=== PATIENT | female | born 1960 | race Two or more races ===

== ENCOUNTER 2018-12-15 17:18 | Emergency (ER) | payer MEDICAID ==
[~2018-12-15] VITALS: Ht 157.5 cm; Wt 68.0 kg
[2018-12-15] MEDS: ONDANSETRON HCL 4MG/2ML INJ IV STA (18:50)
[2018-12-15] MEDS: SODIUM CHLORIDE 0.9% 1,000 ML IV ONE (18:50)
[2018-12-15 18:57] LABS: BASOPHILS % 1.3 % (0.0-2.0); HEMATOCRIT. 32.8 % (36.0-48.0); LYMPHOCYTES % 46.8 % (20.0-50.0); MEAN CORPUSCULAR HEMOGLOBIN 30.2 pg (28.0-32.0); MEAN CORPUSCULAR VOLUME 90.2 fL (81.0-99.0); MEAN PLATELET VOLUME 6.8 fl (7.4-10.4); MONOCYTES % 7.3 % (2.0-8.0); NEUTROPHILS % 43.6 % (40.0-76.0); PLATELET 230 x1000/uL (130-400); RED BLOOD CELL COUNT 3.64 mill/uL (4.2-5.4); RED CELL DISTRIBUTION WIDTH 19.5 % (11.6-14.6)
[2018-12-15 19:01] LABS: CHLORIDE 112 mEq/L (98-107)
[2018-12-15 19:05] LABS: ETHANOL BLOOD < 10 mg/dL
[2018-12-15] MEDS: MORPHINE SULFATE 10 MG/ML CPJ IV ONE (20:00)
[2018-12-15] MEDS: MORPHINE SULFATE 4 MG/ML CPJ (NOT FOR IM USE) IV ONE (21:58)
[2018-12-15] MEDS: KETOROLAC 30MG/ML VIAL IV ONE (21:58)
[2018-12-15] MEDS: ONDANSETRON HCL 4MG/2ML INJ IV ONE (21:58)
[2018-12-15 23:18] LABS: CLARITY URINE CLEAR (CLEAR); COLOR URINE YELLOW (YELLOW); KETONES URINE NEGATIVE (NEGATIVE); LEUKOCYTE ESTERASE URINE NEGATIVE (NEGATIVE); NITRITE URINE NEGATIVE (NEGATIVE); OCCULT BLOOD URINE NEGATIVE (NEGATIVE); PH URINE 5.5 (4.5-8.0); PROTEIN URINE NEGATIVE (NEGATIVE); SPECIFIC GRAVITY URINE 1.032 (1.005-1.030); UROBILINOGEN URINE 0.2 E.U./dL (0.2-1.0)
[2018-12-15 23:41] LABS: *BARBITURATES SCREEN URINE NEGATIVE (NEGATIVE)
[2018-12-15 23:42] LABS: *AMPHETAMINES SCREEN URINE NEGATIVE (NEGATIVE); *BENZODIAZEPINES SCREEN URINE NEGATIVE (NEGATIVE); *COCAINE SCREEN URINE NEGATIVE (NEGATIVE); CANNABINOID URINE SCREEN PRESUMTIVE POSITIVE (NEGATIVE); METHADONE URINE SCREEN NEGATIVE (NEGATIVE); OPIATES URINE SCREEN PRESUMTIVE POSITIVE (NEGATIVE); PHENCYCLIDINE URINE SCREEN NEGATIVE (NEGATIVE)
[2018-12-16 00:45] VITALS: BP 121/61
== END 2018-12-16 01:10 | disposition short-term general hospital (02) ==
LOC: ER 17:18 → CANBEDREQ 12-16 03:00
DX: R10.30 Lower abdominal pain, unspecified (principal); E86.0 Dehydration; K56.7 Ileus, unspecified; Z98.890 Other specified postprocedural states
CPT/HCPCS: 36415; 71045; 74176; 80053; 80305; 80320; 81003; 83605; 83690; 83880; 84145; 84484; 85025; 87040; 87086; 93005; 96361; 96374; 96375; 96376; 99285; J1885; J2270; J2405; J7030; Z7610; G0480

== ENCOUNTER 2019-04-21 01:38 | Emergency (ER) | payer OTHER ==
[~2019-04-21] VITALS: Ht 167.6 cm; Wt 55.0 kg
[2019-04-21] MEDS ORDERED: ONDANSETRON HCL 4MG/2ML INJ IV STA (02:15)
[2019-04-21] MEDS ORDERED: SODIUM CHLORIDE 0.9% 1,000 ML IV ONE ×2 (02:15→05:05)
[2019-04-21] MEDS ORDERED: MORPHINE SULFATE 4 MG/ML CPJ (NOT FOR IM USE) IV STA (02:15)
[2019-04-21 02:50] LABS: BASOPHILS % 0.9 % (0.0-2.0); HEMATOCRIT. 29.9 % (36.0-48.0); HEMOGLOBIN. 10.5 g/dL (12.0-16.0); MEAN CORPUSCULAR HEMOGLOBIN 32.7 pg (28.0-32.0); MEAN CORPUSCULAR VOLUME 93.3 fL (81.0-99.0); MEAN PLATELET VOLUME 7.9 fl (7.4-10.4); MONOCYTES % 3.2 % (2.0-8.0); NEUTROPHILS % 81.9 % (40.0-76.0); PLATELET 159 x1000/uL (130-400); RED CELL DISTRIBUTION WIDTH 14.3 % (11.6-14.6)
[2019-04-21 02:57] LABS: CHLORIDE 106 mEq/L (98-107)
[2019-04-21 02:58] LABS: INR 0.9; PROTHROMBIN TIME 9.8 sec (9.6-11.0)
[2019-04-21 03:00] LABS: CLARITY URINE CLOUDY (CLEAR); COLOR URINE YELLOW (YELLOW); KETONES URINE 1+ (NEGATIVE); LEUKOCYTE ESTERASE URINE 3+ (NEGATIVE); NITRITE URINE NEGATIVE (NEGATIVE); OCCULT BLOOD URINE TRACE (NEGATIVE); PH URINE 5.5 (4.5-8.0); PROTEIN URINE NEGATIVE (NEGATIVE); SPECIFIC GRAVITY URINE 1.015 (1.005-1.030); UROBILINOGEN URINE 0.2 E.U./dL (0.2-1.0)
[2019-04-21] MEDS ORDERED: POTASSIUM CHLORIDE 20MEQ TABLET SR PO SCH (03:15)
[2019-04-21] MEDS ORDERED: KCL 20MEQ/100ML PREMIX 100 ML IV SCH (04:00)
[2019-04-21] MEDS ORDERED: MORPHINE SULFATE 4 MG/ML CPJ (NOT FOR IM USE) IV SCH (05:15)
[2019-04-21] MEDS ORDERED: ONDANSETRON HCL 4MG/2ML INJ IV SCH (05:15)
[2019-04-21] MEDS ORDERED: CEFTRIAXONE 1 G PREMIX 50 ML IV SCH (05:15)
[2019-04-21] MEDS ORDERED: IOHEXOL-300 100 ML BOTTLE ONE (06:36)
[2019-04-21] MEDS ORDERED: ONDANSETRON HCL 4MG/2ML INJ IV ONE (07:30)
[2019-04-21] MEDS ORDERED: MORPHINE SULFATE 2 MG/ML CPJ (NOT FOR IM USE) IV ONE (07:30)
[2019-04-21 11:00] VITALS: BP 135/80
== END 2019-04-21 11:00 | disposition short-term general hospital (02) ==
LOC: ER 01:38
DX: K56.609 Unspecified intestinal obstruction, unspecified as to partial versus complete obstruction (principal); R11.2 Nausea with vomiting, unspecified; E87.6 Hypokalemia; N39.0 Urinary tract infection, site not specified; J45.909 Unspecified asthma, uncomplicated; Z98.890 Other specified postprocedural states
CPT/HCPCS: 36415; 74177; 80053; 81003; 83690; 85025; 85610; 87086; 93005; 96361; 96365; 96366; 96375; 96376; 99285; J0696; J2270; J2405; J3480; J7030; Q9967